=== PATIENT | female | born 1935 | race Caucasian/White ===

== ENCOUNTER 2016-12-15 06:38 | Observation (INO) | payer MEDICARE, OTHER ==
--- NOTE | ~2016-12-15 | DS ---
Discharge Summary [id number] [facility] [place]. [address] NAME: ASHKAN PRICE : 34 STATUS : DIS Sujatha PAT#: [id number] AGE: 81 ADM/REG DATE : 12/15/16 MR#: [id number] REPORT SERV DATE: 12/18/16 DICTATED BY: DATE: REPORT STATUS : Draft TRANSCRIBED BY: MODL DATE: 12/17/16 ADMISSION DATE: 12/15/2016 DISCHARGE DATE: 12/17/2016 DISCHARGE DIAGNOSES: 1. Constipation with fecal impaction. 2. Abdominal pain. 3. Shortness of breath. 4. Leukocytosis. 5. History of bilateral deep vein thrombosis. 6. History of chronic obstructive pulmonary disease. 7. History of chronic pain. 8. Coronary artery disease. 9. Lupus. 10.Hypertension. 11.Diabetes mellitus type 2. 12.Peripheral arterial disease. 13.Hypovolemia. 14.Acute kidney injury. CONSULTATIONS: Cardiology, Dr. Benitez and GI, Dr. Moya. PROCEDURES AND IMAGIN. 12/15/2016, CT of the abdomen and pelvis without contrast showed large amount of fecal material in the descending colon, sigmoid colon, and rectum, strongly suggestive of fecal impaction. 2. 12/15/2016, portable chest x-ray showed no acute cardiopulmonary process. 3. 12/16/2016, mesenteric duplex showed no Doppler evidence of mesenteric ischemia. 4. 12/16/2016, abdominal AP and upright showed diminishing fecal burden within the colon. 5. 12/17/2016, abdominal AP and upright showed nonspecific bowel gas pattern with upper limits of normal caliber, small bowel loops in the central abdomen, and mild amount of fluid in transverse colon. No evidence of colonic obstruction or significant formed stool in the colon. HOSPITAL COURSE: This is a pleasant 81-year-old white female, who lives independently at home. Please refer to Dr. Hudson' H and P dated 12/15/2016 for complete details regarding the patient's admission. In brief, the patient was admitted by Dr. Hudson for initial workup and management of her chronic constipation. The chronic constipation has resulted in shortness of breath and abdominal pain. During the patient's stay, she has been seen by Cardiology, which has ruled out any cardiac pathology with troponins 0.2, trending down to 0.05. Her BNP was 19.9. The patient is having echocardiogram prior to discharge to be read by Dr. Benitez and the report sent to him. The patient has also been seen by Dr. Moya. Her mesenteric artery duplex was negative. The patient drinks a very small amount of fluids at home. Her son states that she might drink two cups of fluid a day, which contributes to her fecal stasis. The patient has had extensive instruction on increasing her fluid status as well as regular use of MiraLAX, prune juice, and milk of magnesia. The patient has Discharge Summary [id number] [facility] [place]. [address] NAME: ASHKAN PRICE : 34 STATUS : DIS Sujatha PAT#: [id number] AGE: 81 ADM/REG DATE : 12/15/16 MR#: [id number] REPORT SERV DATE: 12/18/16 DICTATED BY: DATE: REPORT STATUS : Draft TRANSCRIBED BY: MODL DATE: 12/17/16 repeatedly been noncompliant with these and states that they do not work and she waits until she gets into trouble before she uses something like mineral oil. The patient has had repeated admissions for fecal impaction. The patient was given lactulose and magnesium citrate with good results. The patient's blood pressure has remained stable between the 110s to the 150s over 50s to 60s. The patient's current labs are sodium 142, potassium 4.7, chloride 110, bicarbonate 32, BUN 31, creatinine 0.93, GFR 57, glucose 122, calcium 8.8, magnesium 2.7. WBC is 12.4, hemoglobin 11.2, hematocrit 34.2, platelets 276. INR 2.0. The patient had an acute kidney injury due to her dehydration upon admission, which has been resolving with IV fluids and encouraging the patient to take her laxatives and drink more frequently. The patient has had a negative UA. Her initial lactate was 2.[address] Moya has reviewed her labs and her imaging and has requested for her to follow up with him in two weeks and has given us a bowel regimen for her to follow at home. The patient states that for her chronic pain, she was requested not to come back to her pain management doctor. This was looked up on [facility] and the patient had her last prescription filled in February of last year. The patient states she has been unable to find another pain management doctor. It was suggested that she discuss this with her PCP and have him look up her results in [facility] to see whether he would be willing to prescribe her possibly a daily pain medicine if he perceived that that was necessary. The patient has not required any pain medicine while she has been here. PHYSICAL EXAMINATION: VITAL SIGNS: Blood pressure 126/58, O2 saturation is 96% on room air, temperature is 98.6, respirations are 16, and heart rate is 78. HEENT: Head is atraumatic, normocephalic. No xanthelasma. Pupils are equal, round, and reactive to light. Sclerae are clear. Nonicteric. NECK: Neck is supple with no obvious lymphadenopathy or thyromegaly. Neck veins are flat. CARDIAC: The patient is in a regular rhythm with no obvious murmurs, rubs, or gallops. LUNGS: Clear to auscultation with normal respiratory effort. GI: Abdomen is soft and nontender with active bowel sounds in all four quadrants. Last bowel movement was 12/17/2016. No palpable organomegaly. EXTREMITIES: No significant edema, clubbing, or cyanosis. Dorsalis pedis and posterior tibial pulses are palpable, but faint. The patient does has prominent vasculature in her bilateral ankles and feet with a healed left lateral calf wound due to her peripheral artery disease. MUSCULOSKELETAL: The patient moves all extremities x4. She is ambulatory without assistance. SKIN: Skin is warm and dry with normal color and turgor. NEUROPSYCH: The patient is alert and oriented x4, pleasant, cooperative. Cranial nerves II through XII are grossly intact. DISCHARGE DIET: Regular diet with Coumadin restrictions. DISCHARGE MEDICATIONS: Aspirin 81 mg daily, cholecalciferol 10,000 units every seven days, diltiazem 240 mg daily, Aricept 5 mg twice daily, folic acid 800 mcg daily, nitroglycerin 0.4 mg sublingual p.r.n. for chest pain, Hitchcock-3 300 mg capsule daily, polyethylene glycol one packet twice daily, pravastatin 40 mg daily, Spiriva one capsule daily, Zanaflex 2 mg daily, Coumadin 5 mg daily, albuterol nebulizer four times daily p.r.n., Advair Diskus two Discharge Summary [address] [address] NAME: ASHKAN PRICE : [birth year] STATUS : DIS Sujatha PAT#: [id number] AGE: 81 ADM/REG DATE : 12/15/16 MR#: [id number] REPORT SERV DATE: 12/18/16 DICTATED BY: DATE: REPORT STATUS : Draft TRANSCRIBED BY: HERBER DATE: 12/17/16 puffs inhaled twice daily, vitamin C 1000 mg daily, stool softener twice a day, Cozaar 100 mg daily, PreserVision AREDS soft gel one capsule twice daily, acetaminophen 1000 mg twice daily as needed, Refresh eye drops twice a day p.r.n. dry eyes, milk of magnesia every other day as needed for constipation, one glass of prune juice daily, increase p.o. fluid intake to 1000 mL of water daily. ALLERGIES: THE PATIENT STATES SHE IS ALLERGIC TO CLOPIDOGREL, WHICH CAUSES ITCHING. DISCHARGE INSTRUCTIONS: The patient is to follow up with her PCP in 7 to [address] Moya in approximately two weeks. Should the patient develop any more abdominal pain or have excessive diarrhea or constipation, she is to call her PCP or Dr. Moya or present to the ER. The patient has had repeated instruction on being compliant with her bowel regimen and increasing her fluid intake. The patient states that she doubt she will be compliant in this area, but she will try. Approximately, 30 minutes has been spent coordinating discharge care of this patient, including [id number] encounter and summarization of the discharge. TIMMY/HERBER Pau Gerard NP / [id number] CC: Raulito Kennedy Jr, MD Richard Moody, M.D. Brian Negus, M.D. David Collins, M.D.
--- NOTE | ~2016-12-15 | CN ---
Consultation Report [facility] [address] [place]. [address] NAME: ASHKAN PRICE : 34 STATUS : ADM Sujatha PAT#: [id number] AGE: 81 ADM/REG DATE : 12/15/16 MR#: [id number] REPORT SERV DATE: 12/16/16 DICTATED BY: PRIYA LEBLANC DATE: 12/15/16 REPORT STATUS : Draft TRANSCRIBED BY: MODL DATE: 12/15/16 CARDIOLOGY CONSULTATION DATE OF CONSULTATION: REFERRING REASON: Elevated troponin. HISTORY OF PRESENT ILLNESS: This is an 81 years old white female, well known to Dr. Baudilio Benitez from [facility] with known CAD, admitted for abdominal pain and acute on chronic constipation. She was found to have stool impaction in the emergency room and was started to be disimpacted. She has a pending evaluation by Dr. Moya tomorrow with mesenteric artery ultrasound. She was found to have a mildly positive Hemoccult blood per rectum and fecal impaction on abdominal CT. She denied any recent chest pain or significant dyspnea but has mild chronic dyspnea on exertion. Earlier today, when she suffered abdominal pain in the setting of severe constipation, she developed poorly defined left arm pain which is almost nonexisting currently. Her troponin was initially negative, now increased to 0.2. INR is 3.4, she has been on chronic anticoagulation with Coumadin for hypercoagulable syndrome and history of bilateral DVT remotely. She is poor historian but lives independently. She walks without any support. She denies any recent pain. She has a remote history of PCI to RCA in 1999. She has been closely followed by Dr. Benitez. REVIEW OF SYSTEMS: The rest of review of systems is negative. PAST MEDICAL HISTORY: 1. Chronic constipation. 2. Intracranial carotid artery small aneurysm, followed by Neurosurgery. 3. Chronic mild headaches. 4. Chronic pain syndrome, on narcotics. 5. COPD. 6. Hypertension. 7. Hyperlipidemia. 8. Chronic anticoagulation for hypercoagulable syndrome and history of bilateral DVT. 9. Status post IVC filter placement. 10.Coronary artery disease. Remote history of PCI to RCA in 1999. 11.Peripheral artery disease and systemic lupus erythematosus. 12.Diabetes mellitus. ALLERGIES: PLAVIX. SOCIAL HISTORY: The patient is a . She lives independently. Denies smoking, drinking alcohol, or using street drugs. She quit smoking actually in 2007, smoked for several years. Walks without any support. Consultation Report [address] [place]. [address] NAME: ASHKAN PRICE : 34 STATUS : ADM Sujatha PAT#: [id number] AGE: 81 ADM/REG DATE : 12/15/16 MR#: [id number] REPORT SERV DATE: 12/16/16 DICTATED BY: PRIYA LEBLANC DATE: 12/15/16 REPORT STATUS : Draft TRANSCRIBED BY: HERBER DATE: 12/15/16 FAMILY HISTORY: Negative for sudden cardiac deaths or premature coronary artery disease in the family. HOME MEDICATIONS: Tylenol p.r.n., albuterol p.r.n., aspirin 81 mg once a day, Cardizem CD 240 mg once a day, Aricept 5 mg twice a day, Advair Diskus, folic acid, Cozaar 100 mg once a day, nitroglycerin p.r.n., pravastatin 40 mg once a day, Spiriva inhaler once a day, Zanaflex 2 mg once a day, stool softener, and Coumadin 5 mg once a day. PHYSICAL EXAMINATION: GENERAL: In no acute distress. VITAL SIGNS: Blood pressure 171/63, heart rate 95, regular. The patient remained in sinus rhythm. HEENT: Pupils reactive to light and accommodation. Moist mucosa membrane. NECK: No JVD. Normal carotid upstroke. No carotid bruits. LUNGS: Decreased breath sounds, but no crackles. COR: Normal S1, S2. No S3 or S4. No significant rub or murmurs. ABD: Obese, distended, diffusely tender to palpation. EXT: Lower extremity, decreased pedal pulses bilaterally but no edema. SKIN: Warm with normal turgor. MS: No kyphosis. NEURO/PSY: Alert and oriented. Nonfocal. DATA: CBC remarkable for leukocytosis 11,000 with a left shift. Known fasting glucose 229, normal electrolytes, troponin as above, increasing to 0.22. INR 3.4. CT revealed fecal impaction in the colon. Chest x-ray, no acute pathology. Electrocardiogram revealed sinus tachycardia, 107 beats per minute. Nonspecific T-wave changes. On monitor, she remained in sinus rhythm. ASSESSMENT AND PLAN: 1. Acute on chronic constipation with abdominal discomfort with fecal impaction. 2. Elevated troponin, likely demand ischemia but cannot exclude type 2 myocardial infarction. 3. Coronary artery disease with remote history of PCI. 4. She is on chronic anticoagulation for hypercoagulable syndrome and bilateral remote deep vein thrombosis. The patient will be closely monitored on monitor bed. We will follow cardiac enzymes. We will continue aspirin, start her on beta blockers, and plan for echocardiogram tomorrow. We will hold Coumadin tonight while her INR is 3.4. Dr. Benitez will see her in the morning. In case if her enzymes will continue to go up and she will develop any chest pain, then we may consider proceeding with coronary arteriogram when her INR will be lower. At the present time, she is hemodynamically stable. We will give her some nitro paste tonight while she still has mild left arm pain, but no chest pain. Consultation Report [address] [place]. [address] NAME: ASHKAN PRICE : 34 STATUS : ADM Sujatha PAT#: [id number] AGE: 81 ADM/REG DATE : 12/15/16 MR#: [id number] REPORT SERV DATE: 12/16/16 DICTATED BY: PRIYA LEBLANC DATE: 12/15/16 REPORT STATUS : Draft TRANSCRIBED BY: HEBRER DATE: 12/15/16 NARINDER/HERBER Priya Leblanc M.D. / [id number] CC: Raulito Kennedy Jr, MD Samuel Fitzgerald M.D.
--- NOTE | ~2016-12-15 | CN ---
Consultation Report [facility] [address] [place]. [address] NAME: ASHKAN PRICE : 34 STATUS : ADM Sujatha PAT#: [id number] AGE: 81 ADM/REG DATE : 12/15/16 MR#: [id number] REPORT SERV DATE: 12/15/16 DICTATED BY: BASILIO ZIEGLER DATE: 12/15/16 REPORT STATUS : Draft TRANSCRIBED BY: MODL DATE: 12/15/16 DATE OF CONSULTATION: 12/15/2016 HISTORY OF PRESENT ILLNESS: This is an 81-year-old white female, who came to the emergency room with shortness of breath and also had onset of abdominal pain early this a.m. In the ER, a CT revealed marked stool throughout the colon. Apparently, given some medications, had multiple stools, but pain has persisted. She has had history of DVTs and has lupus anticoagulant, on Coumadin, INR of 3.4. Hemoglobin is 12; white count 11,700; normal platelets 358,000 and as mentioned, INR of 3.4. Minimal rectal bleeding. History of COPD, hypertension, coronary artery disease, status post stent, peripheral vascular disease with stents. Had history of ischemic colitis on last colonoscopy in 2012. Has had a cerebral aneurysm documented, but no treatment. Status post hysterectomy. History of lupus anticoagulant as mentioned. She has had rotator cuff surgery as well and bladder surgery as well. FAMILY HISTORY: Negative for colon cancer. SOCIAL HISTORY: Negative EtOH or nicotine. Positive for aspirin. PHYSICAL EXAMINATION: GENERAL: Elderly white female, alert. HEENT: Anicteric. NECK: Negative. CHEST: Clear to percussion. HEART: Regular rate and rhythm. No murmur or gallop. ABDOMEN: Soft. Tender in left upper and left lower quadrant. Bowel sounds are active. EXTREMITIES: Grossly intact. NEUROLOGIC: Grossly intact. ASSESSMENT: 1. Abdominal pain, constipation, CT with marked amount of retained stool. Treated for the impaction and constipation addressed in the ER, had multiple stools, but pain is persistent. A small amount of bright red blood. A past history of ischemic colitis. White count 11,700 and hemoglobin of 12. 2. Chronic obstructive pulmonary disease and shortness of breath. 3. Deep vein thrombosis, lupus anticoagulant, on Coumadin, INR of 3.4. 4. Coronary artery disease, status post stents. Peripheral vascular disease with stents. 5. Hypertension. 6. History of cerebral aneurysm. SUGGESTIONS: 1. Agree with clear liquids. 2. We will check mesenteric Doppler. 3. Follow up stools for further bleeding. Further evaluation will be based on the results of above. Consultation Report [address] [place]. [address] NAME: ASHKAN PRICE : 34 STATUS : ADM Sujatha PAT#: [id number] AGE: 81 ADM/REG DATE : 12/15/16 MR#: [id number] REPORT SERV DATE: 12/15/16 DICTATED BY: BASILIO ZIEGLER DATE: 12/15/16 REPORT STATUS : Draft TRANSCRIBED BY: HERBER DATE: 12/15/16 Thank you very much for consultation. BRENNAN/HERBER Basilio Ziegler M.D. / [id number] CC: Raulito Kennedy Jr, MD Richard Moody, M.D.
--- NOTE | ~2016-12-15 | HP ---
History And Physical [id number] [place]. [address] NAME: ASHKAN PRICE : 34 STATUS : ADM Sujatha PAT#: [id number] AGE: 81 ADM/REG DATE : 12/15/16 MR#: [id number] REPORT SERV DATE: 12/15/16 DICTATED BY: LEROY MARCELINO DATE: 12/15/16 REPORT STATUS : Draft TRANSCRIBED BY: MODL DATE: 12/15/16 DATE OF ADMISSION: 12/15/2016 CHIEF COMPLAINT: Multiple. HISTORY OF PRESENT ILLNESS: The patient is an 81-year-old white female, who resides at home. She lives independently. She has had chronic constipation but she does not take a regular bowel regimen. She has been prescribed a bowel regimen on many occasions; however, she failed to comply. She states her last bowel movement was about 5 days ago. She came in to the ER today complaining of abdominal pain, distention, and inability to go to the bathroom. On CT, she was found to be impacted and have a large amount of stool. She was thus disimpacted by the ER physician and started to have a very large bowel movement in the ER. She states her stomach still hurts but it is somewhat better. She also reported some shortness of breath in the emergency department; however, son reports that she has been out of a couple of her inhalers over the last several weeks due to the fact that she cannot afford the co-pay, it cost her as much as 600 dollars a month for the Spiriva and Advair. She has not had any documented fevers. She has not had a new cough. She has not had any chest pain. She is complaining of a mild headache. She was diagnosed with a 1 mm aneurysm in the carotid siphon sometime back. She actually saw her neurosurgeon here, then she was referred to a neurosurgeon at [facility]. The [facility] neurosurgeon explained to her that this was not something she needed to repair and to forget she was ever told she had it. She is complaining of a mild headache today. She does suffer from headaches at home, however. the patient also reports that she has been out of her narcotics for at least the last 2 weeks, up to 5 weeks, she had a few pills left but her last one was 2 weeks ago. Since she stopped the pain medications, she has been tired, anxious, jittery, and nauseated. Apparently she violated her contract with [facility] by not bringing in her pill for counting and sometimes running out of pills before her prescription should have been up. I did receive those records from the [facility]. So she has not received any pain medications since that time. PAST MEDICAL HISTORY: 1. Chronic pain. 2. COPD. 3. Hypertension. 4. Hyperlipidemia. 5. Bilateral DVTs with a history of IVC filter. 6. CAD with PTCI. 7. PAD with bilateral iliac stents and a right SFA angioplasty. 8. Lupus anticoagulant positive. 9. Ischemic colitis. 10.Right lower extremity wound. 11.Diabetes mellitus. 12.Chronic headaches. SOCIAL HISTORY: She quit smoking in 2007, was prior a heavy smoker. She does not use History And Physical [address] [address] NAME: ASHKAN PRCIE : 34 STATUS : ADM Sujatha PAT#: [id number] AGE: 81 ADM/REG DATE : 12/15/16 MR#: [id number] REPORT SERV DATE: 12/15/16 DICTATED BY: LEROY MARCELINO DATE: 12/15/16 REPORT STATUS : Draft TRANSCRIBED BY: HERBER DATE: 12/15/16 alcohol. She lives independently. PAST SURGICAL HISTORY: 1. Hysterectomy. 2. Bladder tack. 3. Rotator cuff surgery. 4. Bilateral iliac stents. 5. Parotid adenoma excision. 6. Left thyroidectomy. 7. Skin cancer surgery. 8. Right SFA angioplasty. ALLERGIES: PLAVIX. FAMILY HISTORY: Positive for CAD. HOME MEDICATIONS: Reviewed and attached. REVIEW OF SYSTEMS: Full 10-point review of systems obtained. Pertinent positives mentioned in the HPI. PHYSICAL EXAMINATION: VITAL SIGNS: Temperature is 97.4, current blood pressure is 100/44 with sats of 95% on room air, respiratory rate 20, and pulse is 90 to 100. GENERAL: Well-developed elderly white female. HEENT: Normocephalic, atraumatic. Throat is clear. NECK: Supple. HEART: Regular rate and rhythm. LUNGS: Grossly clear. She is somewhat diminished at the bases. ABDOMEN: Distended. Mildly tender in all four quadrants but no rebound or guarding. EXTREMITIES: Warm and dry. Pulses are diminished at the feet. NEUROLOGIC: She is alert. She is oriented to person, place, and time. Speech is intact. She has appropriate symmetrical strength and tone in all four extremities. LABORATORY AND X-RAY: White count is 11.7, H and H 12.6 and 38.9, and platelets are 352. INR is 3.4. LFTs are normal. Basic metabolic panel is normal other than a glucose of 229 and a creatinine of 1.09 and a BUN of 28. Troponin is 0.02. ABG 7.30/45/125. BNP is 19. Lactate is 2.7. CT of the abdomen and pelvis shows a large amount of fecal material in the descending colon, sigmoid colon, and rectum suggestive of fecal impaction. Chest x-ray is essentially clear. She has COPD-like changes. Urinalysis does not show any white cells. EKG shows sinus tach. ASSESSMENT/PLAN: 1. Constipation with fecal impaction. She has been disimpacted and has now had 4 fairly significant bowel movements in the ER. Her pain is diminishing. Her abdominal distention is diminishing. I think she needs a good bowel regimen. I am going to give her a dose of lactulose today, then place her on MiraLAX b.i.d. We will see how she History And Physical [address] [address] NAME: ASHKAN PRICE : 34 STATUS : ADM Sujatha PAT#: [id number] AGE: 81 ADM/REG DATE : 12/15/16 MR#: [id number] REPORT SERV DATE: 12/15/16 DICTATED BY: LEROY MARCELINO DATE: 12/15/16 REPORT STATUS : Draft TRANSCRIBED BY: HERBER DATE: 12/15/16 does over the next 24 hours. She will need to be discharged on a chronic bowel regimen and I have counseled her today. 2. Abdominal pain, likely secondary to constipation; however, she has a history of ischemic colitis. Her lactate was up. Her white count is only 11. Her CT scan did not indicate any bowel wall thickening. I think it is reasonable to watch her. I am going to hydrate her overnight. Perform serial exams. Check a flat and upright of the abdomen in the morning. If she develops fever, increased white count, or if her pain continues, we will likely re-scan her hopefully with contrast. 3. Shortness of breath. Her BNP is normal. She is fully anticoagulated, so it makes PE unlikely. Her chest x-ray is clear. I suspect this is due to her not taking her inhalers. I am going to place her back on Spiriva and Advair. She does not sound tight on exam and she is not really wheezing. I think just giving her a regular DuoNeb and her inhaler should help. 4. History of bilateral DVT, status post IVC filter on chronic warfarin. Her INR is up today. I am going to hold it tonight, recheck in the morning, and then hopefully resume her Coumadin. 5. History of peripheral arterial disease with multiple procedures, stents, etc. 6. History of CAD. Continue home medications. 7. History of COPD. We will restart her Advair, Spiriva as well as her nebs. 8. Chronic pain. She has been on narcotics for a long time. I am going to place her back on some Lortab here. I think this would help some of her symptoms, then she will need to be re-referred to some type of [facility]. 9. Headache, it is mild in nature. She is going to get some p.o. pain medication and this should help. I was not suspicious for an aneurysmal bleed. She looks too good and stable and she is not in significant pain. 10.Diabetes mellitus. We will add sliding scale. 11.Deep venous thrombosis prophylaxis. She is already fully anticoagulated. 12.Disposition. Pending above. MEAGHAN/HERBER Leroy Marcelino M.D. / [id number] CC: Raulito Kennedy Jr, MD Richard Moody, M.D. Brian Negus, M.D.
[2016-12-15 06:36] LABS: ALLENS TEST Pos; BE (BASE EXCESS) -4.4 MEQ/L (0 +/- 2.5); CARBOXYHEMOGLOBIN 0.9 % (0-3); DEVICE NC; HCO3 (ACTUAL BICARBONATE) 21.9 MEQ/L (23-27); HEMOBLOGIN CONTENT 12.7 G/DL (12-16); INSTRUMENT SERIAL # 8087; O2 CONTENT 17.5 VOL% (18-24); PCO2 (CO2 TENSION) 45 MMHG (35-45); PO2 (O2 TENSION) 125 MMHG (79-93); SAMPLE Arterial
[~2016-12-15 06:38] MED LIST: ACCUNEB INH; ADVAIR250 INH; ALBUTEROL5 INH; AREDS PO; ASAB PO; B-COMPLEX PO; BIST PO; C25; C5; C5 PO; CARDCD180 PO; CARTIA XT300 MG/24 PO; CENTRUM TAB1 TAB PO; CIP5 PO; CITRACAL PO; COZAAR100 MG PO; FENOGLIDE120 MG PO; FESO4 PO; FISH OIL1200 MG PO; FISH-EPA1000 MG PO; FLAG500TAB PO; FOLIC ACID PO; FOLIC ACID400 MC1 PO; FOLIC PO; GLUCPH PO; HALF81 PO; IBU800 PO; K-TABS10 MEQ PO; KLOR-CON M2020 MEQ PO; L20 PO; LOFIBRA200 MG PO; LORT7 PO; LORTAB 5 PO; MAXIMUM D3 PO; MCZ125 PO; MEDI HONEY TOP; MEVACOR PO; MICARDIS40 PO; MICRO-K10 MEQ PO; MULTIPLE VIT PO; MULTIVIT/MIN PO; NIACIN 500 PO; NORCO1 TA1 PO; POTASSIUM95 MG PO; PRAVACHOL40 MG PO; PRESERVISION PO; PRILO PO; PRILOSEC10 MG PO; PRIN10 PO; PRIN20 PO; PROAIR HFA INH; PROVENTSOL INH; SPIRIVA INH; STOOL SOFTEN100 MG PO; TEARS NATURA OPH; VENTOLIN HFA INH; VITAMIN D31000 UNIT PO; VITC500 PO
[2016-12-15 07:03] LABS: BASOPHILS 0.2 %; BASOPHILS ABSOLUTE 0.02 10/3/uL (0.0-0.16); EOSINOPHILS 1.2 %; EOSINOPHILS ABSOLUTE 0.14 10/3/uL (0.0-0.53); HEMATOCRIT 38.9 % (36.0-48.0); HEMOGLOBIN 12.6 g/dL (12.0-16.0); IMMATURE GRANULOCYTES ABSOLUTE 0.12 10/3/uL (0.0-0.11); LYMPHOCYTES 54.5 %; LYMPHOCYTES ABSOLUTE 6.38 10/3/uL (0.67-4.30); MEAN CORPUS HGB CONC 32.4 g/dL (32.0-36.0); MEAN CORPUSCULAR HEMOGLOB 30.9 pg (26.0-34.0); MEAN PLATELET VOLUME 9.4 fL (9.2-13.0); MONOCYTES 3.8 %; MONOCYTES ABSOLUTE 0.45 10/3/uL (0.21-1.20); NEUTROPHILS 39.3 %; PLATELET COUNT 352 10/3/uL (150-400); RBC DISTRIBUTION WIDTH 15.9 % (12.0-16.0); RED CELL COUNT 4.08 10/6/uL (4.0-5.6)
[2016-12-15 07:06] LABS: ER CBC TAT 0 Hrs 10 Mins; MANUAL DIFF NO %; MEAN CORPUSCULAR VOLUME 95.3 fL (80-100); WHITE BLOOD CELLS 11.7 10/3/uL (4.5-10.5)
[2016-12-15 07:09] LABS: INTERNATIONAL NORMAL RATI 3.4 UNITS (-); PARTIAL THROMBO TIME 36.9 SEC (22.5-37.2)
[2016-12-15 07:10] LABS: PROTIME (NOT ORD) 33.9 SEC (12.0-14.5)
[2016-12-15 07:23] LABS: ALBUMIN 3.3 G/DL (3.5-5.0); ALKALINE PHOSPHATASE 91 U/L (45-117); CHEST PAIN PROFILE TAT 0 Hrs 27 Mins; CHLORIDE, SERUM 106 MMOL/L (96-112); CO2 (CARBON DIOXIDE) 28 MMOL/L (24-34); CREATININE 1.09 MG/DL (0.55-1.02); GFR AFRICAN AMERICAN 55 ML/MIN (>=60); GFR NON AFRICAN AMERICAN 47 ML/MIN (>=60); POTASSIUM, SERUM 4.3 MMOL/L (3.5-5.3); SGOT(AST) 24 U/L (5-40); SGPT(ALT) 29 U/L (5-65); SODIUM, SERUM 141 MMOL/L (135-148); TOTAL BILIRUBIN 0.3 MG/DL (0-1.2); TOTAL PROTEIN 7.2 G/DL (6.0-8.5); TROPONIN I 0.02 NG/ML (<0.05)
[2016-12-15 07:24] LABS: BUN (BLOOD UREA NITROGEN) 28 MG/DL (6-23); DIRECT BILIRUBIN < 0.1 MG/DL (0.0-0.4); GLUCOSE, SERUM 229 MG/DL (60-99); INDIRECT BILIRUBIN(NOT ORDER) 0.2 MG/DL (0.1-0.9)
[2016-12-15 07:31] LABS: BASOPHILS 1 %; BASOPHILS ABSOLUTE (CALC) 0.12 10/3/uL (0.0-0.16); EOSINOPHILS 1 %; EOSINOPHILS ABSOLUTE (CALC) 0.12 10/3/uL (0.0-0.53); ER DIFF TAT 0 Hrs 35 Mins; LYMPHOCYTES 58 %; LYMPHOCYTES ABSOLUTE (CALC) 6.79 10/3/uL (0.67-4.30); NEUTROPHILS ABSOLUTE (CALC) 4.68 10/3/uL (2.02-8.40); SEGMENTED NEUTROPHIL (0) 40 %; TOTAL NUCLEATED CELLS 100
[2016-12-15 07:32] LABS: PLATELET ESTIMATE ADQ (ADEQUATE); RBC MORPHOLOGY NORM (NORMAL)
[2016-12-15 08:22] LABS: LACTATE 2.7 MMOL/L (0.3-2.4)
[2016-12-15] MEDS ORDERED: FOLIC ACID800 MCG PO (08:41)
[2016-12-15] MEDS ORDERED: VITC500 PO (08:41)
[2016-12-15 08:43] LABS: ASCORBIC ACID (UR NOT ORDER) 40 (NEG); BILIRUBIN, URINE SMALL (NEG); ER URINALYSIS TAT 0 Hrs 10 Mins; KETONE, URINE TRACE MG/DL (NEG); NITRITE (URINE) NEG (NEG); WBC (NOT ORDERED) (RFLEX) 1 (0-5)
[2016-12-15 08:44] LABS: LEUKOCYTE ESTERASE(NOT OR TRACE (NEG)
[2016-12-15] MEDS ORDERED: STOOL SOFTENER PO (08:45)
[2016-12-15] MEDS ORDERED: ASAB PO (08:45)
[2016-12-15] MEDS ORDERED: COZAAR100 MG PO (08:46)
[2016-12-15] MEDS ORDERED: ARICEPT5 PO (08:46)
[2016-12-15] MEDS ORDERED: CARDCD240 PO (08:46)
[2016-12-15] MEDS ORDERED: FISH OIL300 MG PO (08:47)
[2016-12-15] MEDS ORDERED: PRESERVISION A1 EACH PO (08:47)
[2016-12-15] MEDS ORDERED: PRAVACHOL40 MG PO (08:48)
[2016-12-15] MEDS ORDERED: C5 PO (08:49)
[2016-12-15] MEDS ORDERED: ALBUTEROL0.083 % INH (08:51)
[2016-12-15] MEDS ORDERED: ADVAIR250 INH (08:52)
[2016-12-15] MEDS ORDERED: SPIRIVA INH (08:52)
[2016-12-15] MEDS ORDERED: ACET500CAP PO (08:53)
[2016-12-15] MEDS ORDERED: REFRES1 OPH (08:54)
[2016-12-15] MEDS ORDERED: MAXIMUM D3 PO (08:55)
[2016-12-15] MEDS ORDERED: NITROSTAT0.4 MG SL (08:55)
[2016-12-15] MEDS ORDERED: ZANAFLEX2 MG PO (10:21)
[2016-12-16 05:26] LABS: BASOPHILS 0.1 %; BASOPHILS ABSOLUTE 0.01 10/3/uL (0.0-0.16); EOSINOPHILS 0.1 %; EOSINOPHILS ABSOLUTE 0.01 10/3/uL (0.0-0.53); HEMOGLOBIN 11.6 g/dL (12.0-16.0); IMMATURE GRANULOCYTES 0.2 %; IMMATURE GRANULOCYTES ABSOLUTE 0.03 10/3/uL (0.0-0.11); LYMPHOCYTES 14.2 %; MEAN CORPUS HGB CONC 33.8 g/dL (32.0-36.0); MEAN CORPUSCULAR HEMOGLOB 31.3 pg (26.0-34.0); MEAN CORPUSCULAR VOLUME 92.5 fL (80-100); MEAN PLATELET VOLUME 9.5 fL (9.2-13.0); MONOCYTES 4.3 %; MONOCYTES ABSOLUTE 0.67 10/3/uL (0.21-1.20); NEUTROPHILS 81.1 %; NEUTROPHILS ABSOLUTE 12.55 10/3/uL (2.02-8.40); PLATELET COUNT 302 10/3/uL (150-400); RBC DISTRIBUTION WIDTH 16.1 % (12.0-16.0); RED CELL COUNT 3.71 10/6/uL (4.0-5.6); WHITE BLOOD CELLS 15.5 10/3/uL (4.5-10.5)
[2016-12-16 05:28] LABS: HEMATOCRIT 34.3 % (36.0-48.0); MANUAL DIFF NO %
[2016-12-16 05:33] LABS: INTERNATIONAL NORMAL RATI 2.6 UNITS (-)
[2016-12-16 05:34] LABS: PROTIME (NOT ORD) 27.5 SEC (12.0-14.5)
[2016-12-16 05:40] LABS: CALCIUM, SERUM 8.5 MG/DL (8.5-10.4); CHLORIDE, SERUM 111 MMOL/L (96-112); CO2 (CARBON DIOXIDE) 25 MMOL/L (24-34); CREATININE 1.38 MG/DL (0.55-1.02); GFR AFRICAN AMERICAN 41 ML/MIN (>=60); GFR NON AFRICAN AMERICAN 36 ML/MIN (>=60); POTASSIUM, SERUM 5.1 MMOL/L (3.5-5.3); SODIUM, SERUM 145 MMOL/L (135-148)
[2016-12-16 05:41] LABS: BUN (BLOOD UREA NITROGEN) 43 MG/DL (6-23); GLUCOSE, SERUM 116 MG/DL (60-99); TROPONIN I 0.05 NG/ML (<0.05)
[2016-12-17 06:13] LABS: BASOPHILS 0.1 %; BASOPHILS ABSOLUTE 0.01 10/3/uL (0.0-0.16); EOSINOPHILS ABSOLUTE 0.12 10/3/uL (0.0-0.53); HEMATOCRIT 34.2 % (36.0-48.0); HEMOGLOBIN 11.2 g/dL (12.0-16.0); IMMATURE GRANULOCYTES 0.2 %; IMMATURE GRANULOCYTES ABSOLUTE 0.02 10/3/uL (0.0-0.11); LYMPHOCYTES 16.8 %; LYMPHOCYTES ABSOLUTE 2.08 10/3/uL (0.67-4.30); MEAN CORPUS HGB CONC 32.7 g/dL (32.0-36.0); MEAN CORPUSCULAR HEMOGLOB 31.5 pg (26.0-34.0); MEAN PLATELET VOLUME 9.1 fL (9.2-13.0); MONOCYTES 5.5 %; MONOCYTES ABSOLUTE 0.68 10/3/uL (0.21-1.20); NEUTROPHILS 76.4 %; NEUTROPHILS ABSOLUTE 9.44 10/3/uL (2.02-8.40); PLATELET COUNT 276 10/3/uL (150-400); RBC DISTRIBUTION WIDTH 16.1 % (12.0-16.0); RED CELL COUNT 3.56 10/6/uL (4.0-5.6); WHITE BLOOD CELLS 12.4 10/3/uL (4.5-10.5)
[2016-12-17 06:14] LABS: MANUAL DIFF NO %; MEAN CORPUSCULAR VOLUME 96.1 fL (80-100)
[2016-12-17 06:23] LABS: PROTIME (NOT ORD) 22.9 SEC (12.0-14.5)
[2016-12-17 06:27] LABS: CALCIUM, SERUM 8.8 MG/DL (8.5-10.4); CHLORIDE, SERUM 110 MMOL/L (96-112); CREATININE 0.93 MG/DL (0.55-1.02); GFR AFRICAN AMERICAN 66 ML/MIN (>=60); GFR NON AFRICAN AMERICAN 57 ML/MIN (>=60); GLUCOSE, SERUM 122 MG/DL (60-99); POTASSIUM, SERUM 4.7 MMOL/L (3.5-5.3); SODIUM, SERUM 142 MMOL/L (135-148)
[2016-12-17 06:28] LABS: BUN (BLOOD UREA NITROGEN) 31 MG/DL (6-23); CO2 (CARBON DIOXIDE) 32 MMOL/L (24-34)
[2016-12-17] MEDS ORDERED: MOMUD PO (13:57)
[2016-12-17] MEDS ORDERED: MIRALAX POWDER1 PKT PO (13:58)
[2017-01-02] MEDS ORDERED: C1 PO (13:50)
== END 2016-12-17 14:32 | disposition home or self-care (01) ==
LOC: ER 06:38 → CDU1 09:12 → CDU2 10:18
PROVIDERS: Internal Medicine; Nurse Practitioner Family; Specialist
DX: K59.09 Other constipation (principal); R10.9 Unspecified abdominal pain; R06.02 Shortness of breath; D72.829 Elevated white blood cell count, unspecified; I25.10 Atherosclerotic heart disease of native coronary artery without angina pectoris; J44.9 Chronic obstructive pulmonary disease, unspecified; G89.29 Other chronic pain; E11.9 Type 2 diabetes mellitus without complications; I73.9 Peripheral vascular disease, unspecified; E86.1 Hypovolemia; E78.5 Hyperlipidemia, unspecified; K55.9 Vascular disorder of intestine, unspecified; E89.0 Postprocedural hypothyroidism; N17.9 Acute kidney failure, unspecified; Z88.6 Allergy status to analgesic agent; Z88.8 Allergy status to other drugs, medicaments and biological substances; Z86.718 Personal history of other venous thrombosis and embolism; Z95.5 Presence of coronary angioplasty implant and graft
CPT/HCPCS: 36600; 71010; 74020; 74176; 80048; 80076; 81001; 82272; 82805; 82962; 83605; 83735; 83880; 84484; 85025; 85610; 85730; 93005; 93306; 93975; 94640; 96374; 99285; A9270-GY; G0378; J2405